=== PATIENT | female | born 1990 | race Caucasian/White ===

== ENCOUNTER 2016-12-31 20:00 | Emergency (ER) | payer OTHER ==
[~2016-12-31] VITALS: Ht 152.4 cm; Wt 51.3 kg
--- NOTE | 2016-12-31 20:05 | NUR ---
PT AMBULATORY TO ER BED 18 C/O ABDOMINAL PAIN X 3 DAYS NOW. DENIES N/V. PT STATES 3 WEEKS . NO VAGINAL BLEEDING. GOWNED AND PLACED ON MONITOR. NAD NOTED. AWAITING MD COMBS.
--- NOTE | 2016-12-31 21:39 | NUR ---
DR PATTERSON AT BEDSIDE FOR EVAL.
[2016-12-31 21:48] LABS: APPEARANCE,URINE Clear (CLEAR); BILIRUBIN,URINE Negative (NEGATIVE); BLOOD, URINE Negative Ery/uL (NEGATIVE); COLOR,URINE Yellow (YELLOW); KETONES,URINE Negative (NEGATIVE); LEUKOCYTE ESTERASE ,URINE Negative (NEGATIVE); NITRITE, URINE Negative (NEGATIVE); PROTEIN,URINE Negative (NEGATIVE); UGLUCOSE Negative (NEGATIVE); UROBILINOGEN,URINE 0.2 EU/dL (0.2)
[2016-12-31] MEDS ORDERED: ACETAMINOPHEN 325 MG TABLET PO ONE (22:30)
[2016-12-31] MEDS ORDERED: ACETAMINOPHEN 325 MG TABLET ONE (22:35)
[2016-12-31 23:22] VITALS: BP 118/65
--- NOTE | 2016-12-31 23:22 | NUR ---
Patient discharged to home in stable condition. Written and verbal after care instructions given. Patient verbalizes understanding of instruction.
== END 2016-12-31 23:24 | disposition home or self-care (01) ==
LOC: ER 20:06
DX: R10.31 Right lower quadrant pain (principal)
CPT/HCPCS: 36415; 81000-TC; 84702-TC; 87491; 87591; A4606; Z7610

== ENCOUNTER 2017-01-02 12:37 | Emergency (ER) | payer OTHER ==
[~2017-01-02] VITALS: Ht 152.4 cm; Wt 51.7 kg
[2017-01-02 12:44] VITALS: BP 116/78
== END 2017-01-02 15:16 | disposition home or self-care (01) ==
LOC: ER 12:43
DX: O20.0 Threatened abortion (principal)
CPT/HCPCS: 36415; 76856; 84702; 86850; 99285; A4606; Z7610

== ENCOUNTER 2017-02-06 11:42 | Emergency (ER) | payer OTHER ==
[~2017-02-06] VITALS: Ht 152.4 cm; Wt 51.7 kg
[2017-02-06 12:14] LABS: APPEARANCE,URINE CLEAR (CLEAR); BILIRUBIN,URINE NEGATIVE (NEGATIVE); BLOOD, URINE NEGATIVE Ery/uL (NEGATIVE); COLOR,URINE YELLOW (YELLOW); KETONES,URINE NEGATIVE (NEGATIVE); LEUKOCYTE ESTERASE ,URINE TRACE (NEGATIVE); NITRITE, URINE NEGATIVE (NEGATIVE); PH,URINE 6.5 (5.0-8.0); PROTEIN,URINE NEGATIVE (NEGATIVE); UGLUCOSE NEGATIVE (NEGATIVE); UROBILINOGEN,URINE 0.2 EU/dL (0.2)
--- NOTE | 2017-02-06 12:19 | NUR ---
Recieved pt to ed bed 08, a/ox4 with c/o lower abdominal cramping, radiating to the back since yesterday. pt is 9 wks , . pt dneies vaginal bleeding or discharge. nad vss rr even and unlabored skin is warm and non diaphroetic. seen and evaluated by dr colorado
[2017-02-06 12:36] LABS: BACTERIA,URINE Rare /HPF (None Seen); RBC,URINE 0-2 /HPF (0-2); SQUAMOUS EPITHELIAL CELL,UR Rare /HPF (None Seen); WBC,URINE 0-2 /HPF (0-3)
[2017-02-06 13:21] VITALS: BP 128/78
--- NOTE | 2017-02-06 13:21 | NUR ---
Patient discharged to home in stable condition. Written and verbal after care instructions given. Patient verbalizes understanding of instruction.
== END 2017-02-06 13:23 | disposition home or self-care (01) ==
LOC: ER 11:44
DX: O26.891 Other specified pregnancy related conditions, first trimester (principal); R10.2 Pelvic and perineal pain; Z3A.09 9 weeks gestation of pregnancy
CPT/HCPCS: 76856; 81001; 99285; A4606; Z7610; 81000-TC

== ENCOUNTER 2017-05-06 08:53 | Emergency (ER) | payer OTHER ==
[~2017-05-06] VITALS: Ht 154.9 cm; Wt 59.0 kg
--- NOTE | 2017-05-06 09:20 | NUR ---
CALLED [phone] LINDA VALLEJO LEFT MSG.
[2017-05-06 09:21] LABS: BASOPHILS % (AUTO) 0.2 % (0.0-2.0); EOSINOPHILS # (AUTO) 0.1 /CMM (0.0-0.7); EOSINOPHILS % (AUTO) 0.9 % (0.0-6.0); HEMATOCRIT 36 % (33-45); HEMOGLOBIN 12.3 g/dL (11.5-14.8); LYMPHOCYTES # (AUTO) 0.9 /CMM (0.8-4.8); LYMPHOCYTES % (AUTO) 9.8 % (20.0-44.0); MEAN CORPUSCULAR HEMOGLOBIN 31 PG (26.0-33.0); MEAN CORPUSCULAR HGB CONC 35 g/dl (31.0-36.0); MEAN CORPUSCULAR VOLUME 89 fL (82-100); MONOCYTES # (AUTO) 0.3 /CMM (0.1-1.30); MONOCYTES % (AUTO) 3.4 % (2.0-12.0); NEUTROPHILS % (AUTO) 85.7 % (43.0-81.0); PLATELET COUNT (AUTO) 342 /CMM (150-450); RDW COEFFICIENT OF VARIATION 12.4 (11.5-15.0); RED BLOOD CELL COUNT(AUTO) 3.97 MIL/uL (4.0-5.2); WHITE BLOOD COUNT (AUTO) 9.3 K/uL (4.3-11.0)
[2017-05-06 09:23] LABS: APPEARANCE,URINE Slightly Cloudy (CLEAR); BILIRUBIN,URINE Negative (NEGATIVE); BLOOD, URINE Negative Ery/uL (NEGATIVE); COLOR,URINE Yellow (YELLOW); KETONES,URINE Negative (NEGATIVE); LEUKOCYTE ESTERASE ,URINE Small (NEGATIVE); NITRITE, URINE Negative (NEGATIVE); PH,URINE 8.5 (5.0-8.0); PROTEIN,URINE Negative (NEGATIVE); UGLUCOSE Negative (NEGATIVE); UROBILINOGEN,URINE 0.2 EU/dL (0.2)
[2017-05-06 09:27] LABS: BACTERIA,URINE Few /HPF (None Seen); RBC,URINE NONE SEEN /HPF (0-2); SQUAMOUS EPITHELIAL CELL,UR Few /HPF (None Seen)
[2017-05-06 09:30] LABS: CALCIUM, SERUM 8.8 mg/dL (8.5-10.1); CREATININE 0.6 mg/dL (0.6-1.3); POTASSIUM 3.4 mmol/L (3.5-5.1)
--- NOTE | 2017-05-06 09:48 | NUR ---
SONIA AT BS.
--- NOTE | 2017-05-06 10:30 | NUR ---
US at bedside
[2017-05-06 11:29] VITALS: BP 109/67
== END 2017-05-06 11:29 | disposition home or self-care (01) ==
LOC: ER 08:55
DX: O26.892 Other specified pregnancy related conditions, second trimester (principal); R82.71 Bacteriuria; R10.2 Pelvic and perineal pain; Z3A.23 23 weeks gestation of pregnancy
CPT/HCPCS: 36415; 76856; 80048; 81001; 85025; 87086; 99285; A4606; Z7610; 81000-TC

== ENCOUNTER 2017-06-17 12:30 | Emergency (ER) | payer OTHER ==
[~2017-06-17] VITALS: Ht 152.4 cm; Wt 63.0 kg
--- NOTE | 2017-06-17 12:36 | NUR ---
HAS NOT FELT BABY MOVE X 3 DAYS
--- NOTE | 2017-06-17 13:09 | NUR ---
Patient discharged to home in stable condition. Written and verbal after care instructions given. Patient verbalizes understanding of instruction.
[2017-06-17 13:10] VITALS: BP 118/76
== END 2017-06-17 13:10 | disposition home or self-care (01) ==
LOC: ER 12:34
DX: O26.893 Other specified pregnancy related conditions, third trimester (principal); Z3A.28 28 weeks gestation of pregnancy
CPT/HCPCS: 99284; A4606; Z7610

== ENCOUNTER 2022-01-19 17:45 | Emergency (ER) | payer MEDICAID, OTHER ==
[~2022-01-19] VITALS: Ht 154.9 cm; Wt 59.0 kg
--- NOTE | 2022-01-19 18:12 | NUR ---
URINE SAMPLE COLLECTED AND SENT TO LAB
--- NOTE | 2022-01-19 18:17 | NUR ---
FORMULA WEIGHER AT BEDSIDE
--- NOTE | 2022-01-19 18:53 | NUR ---
US TECH AT BEDSIDE
[2022-01-19 19:08] LABS: ALBUMIN 4.1 g/dL (3.4-5.0); BILIRUBIN,DIRECT 0.1 mg/dL (0.0-0.2); BILIRUBIN,TOTAL 0.4 mg/dL (0.2-1.0); CALCIUM, SERUM 8.4 mg/dL (8.5-10.1); CREATININE 0.8 mg/dL (0.6-1.3); POTASSIUM 3.9 mmol/L (3.5-5.1); TOTAL PROTEIN, SERUM 7.6 g/dL (6.4-8.2)
--- NOTE | 2022-01-19 19:39 | NUR ---
bibs for vaginal bleeding, rlq abdominal pain and nausea since 01/14. +. AWAKE AND ALERT HEMODYNAMICALLY.
[2022-01-19 19:47] LABS: BILIRUBIN,URINE NEGATIVE (NEGATIVE); COLOR,URINE YELLOW (YELLOW); LEUKOCYTE ESTERASE ,URINE NEGATIVE (NEGATIVE); NITRITE, URINE NEGATIVE (NEGATIVE); PH,URINE 6.5 (5.0-8.0); PROTEIN,URINE NEGATIVE (NEGATIVE); UGLUCOSE NEGATIVE (NEGATIVE); UROBILINOGEN,URINE 0.2 EU/dL (0.2)
[2022-01-19 19:52] LABS: EOSINOPHILS % (AUTO) 0.8 % (0.0-6.0); HEMATOCRIT 41 % (33-45); HEMOGLOBIN 13.6 g/dL (11.5-14.8); LYMPHOCYTES # (AUTO) 1.6 K/uL (0.8-4.8); LYMPHOCYTES % (AUTO) 20.9 % (20.0-44.0); MEAN CORPUSCULAR HGB CONC 34 g/dl (31.0-36.0); MEAN CORPUSCULAR VOLUME 91 fL (82-100); MONOCYTES # (AUTO) 0.6 K/uL (0.1-1.30); MONOCYTES % (AUTO) 7.7 % (2.0-12.0); NEUTROPHILS # (AUTO) 5.5 K/uL (1.8-8.9); NEUTROPHILS % (AUTO) 70.6 % (43.0-81.0); PLATELET COUNT (AUTO) 308 K/uL (150-450); RED BLOOD CELL COUNT(AUTO) 4.47 MIL/uL (4.0-5.2); WHITE BLOOD COUNT (AUTO) 7.9 K/uL (4.3-11.0)
[2022-01-19 19:59] LABS: BACTERIA,URINE None seen /HPF (None Seen); RBC,URINE 21-50 /HPF (0-2); WBC,URINE 0-2 /HPF (0-3)
--- NOTE | 2022-01-19 20:26 | NUR ---
Patient discharged to home in stable condition. Written and verbal after care instructions given. Patient verbalizes understanding of instruction.
[2022-01-19 20:30] VITALS: BP 117/79
== END 2022-01-19 20:30 | disposition home or self-care (01) ==
LOC: ER 18:02
DX: N93.9 Abnormal uterine and vaginal bleeding, unspecified (principal); R89.1 Abnormal level of hormones in specimens from other organs, systems and tissues; Z88.0 Allergy status to penicillin
CPT/HCPCS: 36415; 76805-TC; 80048-TC; 80076-TC; 81001; 83690-TC; 84702-TC; 85025-TC